=== PATIENT | male | born 1985 | race Hispanic/Latino ===

== ENCOUNTER 2017-09-19 18:39 | Emergency (ER) | payer SELFPAY ==
[~2017-09-19 18:39] MED LIST: ISOVUE-370 76%-LOCM 1 ML ONE
[2017-09-19] MEDS ORDERED: Ketorolac Tromethamine 30 MG/ML VIAL ONE (19:38)
[2017-09-19] MEDS ORDERED: Acetaminophen 500 MG TAB ONE (19:38)
[2017-09-19 19:54] LABS: #Eosinphils 0.1 thou/uL (0.0-0.7); #Lymphocytes 2.2 thou/uL (1.20-3.40); #Monocytes 0.8 thou/uL (0.11-0.59); #Neutrophils 7.7 thou/uL (1.40-6.50); %Basophils 0.1 % (0.0-1.0); %Lymphocytes 20.2 % (21.0-51.0); %Monocytes 7.2 % (0.0-10.0); %Neutrophils 71.6 % (42.0-75.0); Hemoglobin 15.1 g/dL (14.0-18.0); Mean Corpuscular HGB CONC 34.1 g/dL (32.0-36.0); Mean Corpuscular Hemoglobin 32.8 pg (27.0-31.0); Mean Corpuscular Volume 96.1 fl (80.0-94.0); Mean Platelet Volume 8.7 fL (7.4-10.4); Platelet Count 174 thou/uL (130-400); RBC Distribution Width 12.1 % (11.5-14.5); Red Blood Cell (RBC) Count 4.62 mill/uL (4.70-6.10); White Blood Cell (WBC) Count 10.7 thou/uL (4.8-10.8)
[2017-09-19 20:30] LABS: ALT (SGPT) 16 U/L (8-55); AST (SGOT) 14 U/L (5-34); Albumin 4.4 g/dL (3.5-5.0); Alkaline Phosphatase 80 U/L (40-150); Anion Gap 15 mmol/L (10-20); BUN (Urea Nitrogen) 13 mg/dL (8.9-20.6); Bilirubin, Total 0.4 mg/dL (0.2-1.2); Calc. Creatinine Clearance 0 mL/min (70-130); Calcium 9.3 mg/dL (7.8-10.44); Carbon Dioxide 22 mmol/L (22-29); Chloride 104 mmol/L (98-107); Estimated GFR-MDRD Greater than 90; Globulin 3.3 g/dL (2.4-3.5); Glucose 99 mg/dL (70-105); Potassium 3.8 mmol/L (3.5-5.1); Protein, Total 7.7 g/dL (6.0-8.3); Sodium 137 mmol/L (136-145)
[2017-09-19] MEDS ORDERED: Clindamycin/D5W 600 MG in Premix Bag 1 BAG IVPB SCH (22:15)
[2017-09-19] MEDS ORDERED: Clindamycin/D5W 600 mg/50 ml Premix Bag ONE (22:31)
--- NOTE | 2017-09-19 22:33 | CT ---
CT OF THE PELVIS: Date: 09-19-17 Comparison: None. History: Swelling, fever, left inguinal pain. Technique: Serial axial CT imaging at 5 mm intervals through the pelvis with IV contrast. Coronal ref ormatted imaging obtained. FINDINGS: Vascular structures of the pelvis appear unremarkable. Limited assessment of the imaged bowel without contrast media demonstrates no acute findings. There are enlarged lymph nodes along the left external iliac chain measuring up to 1.7 cm in short ax is dimension. There are left inguinal enlarged nodes, including a left inguinal node measuring up to 2 cm in short axis dimension. The margins of enlarged left inguinal nodes are irregular and there is mild stranding of the adjacent subcutaneous fat. There is no evidence for a pelvis abscess. The images osseous structures appear unremarkable. IMPRESSION: Lymphadenopathy in the left inguinal region and left external iliac chain. Some of the enlarged left inguinal nodes demonstrate ill defined margins and adjacent hazy increased density within the fat sug gesting inflammatory change. These findings may be infectious/inflammatory in nature. Follow up imagi ng following treatment to document resolution is advised as malignancy cannot be excluded in the prop er clinical setting. Code T POS: TRACY
== END 2017-09-19 23:25 | disposition home or self-care (01) ==
LOC: ERS 18:39
DX: R59.0 Localized enlarged lymph nodes (principal); R50.9 Fever, unspecified; F17.210 Nicotine dependence, cigarettes, uncomplicated
CPT/HCPCS: 80053; 83615; 85025; 85652; 96361; 96374; 96375; J1885; J3490

== ENCOUNTER 2022-10-03 23:02 | Emergency (ER) | payer SELFPAY ==
[2022-10-04] MEDS ORDERED: hydrOXYzine 25 MG TAB ONE (01:10)
[2022-10-04] MEDS ORDERED: Ketorolac Tromethamine 30 MG/ML VIAL ONE (01:10)
[2022-10-04] MEDS ORDERED: Dexamethasone 10 MG/ML VIAL ONE (01:10)
== END 2022-10-04 01:31 | disposition home or self-care (01) ==
LOC: ERS 23:02
DX: H10.9 Unspecified conjunctivitis (principal); L30.9 Dermatitis, unspecified; F17.210 Nicotine dependence, cigarettes, uncomplicated
CPT/HCPCS: 96372; 99282; J1100; J1885